=== PATIENT | female | born 1945 | race Caucasian/White ===

== ENCOUNTER 2021-04-15 11:03 | Inpatient (IN) | payer MEDICARE ==
[~2021-04-15] VITALS: Ht 152.4 cm; Wt 87.5 kg
--- NOTE | 2021-04-15 12:19 | ED.ADGEN ---
Past Medical History Past Surgical History: Cholecystectomy Additional Past Surgical Histo: L hip surgery, carpal tunnel, lumbar back, Smoking Status: Never Smoker Alcohol Use: None General Adult EDM: Chief Complaint: ABDOMINAL PAIN HPI: HPI: Patient is a 75-year-old female who arrives via EMS complaining of a 2-week h istory of intermittent abdominal pain. Patient reports she saw her primary care physician 2 weeks ago and had this pain at that time. Patient states despite that, the pain subsided without intervention. Patient states the pain has however returned and she now has pain in her lower abdomen. Patient further states that it is exquisitely painful whenever she moves. Patient points to her right lower quadrant as well as left lower quadrant. Despite her pain, the patient denies any history of fever, nausea or vomiting. She further denies diarrhea or dysuria. Additionally she denies any development of any masses. She is awake, alert and nontoxic-appearing Review of Systems: Review of Systems: Constitutional: Denies fever or chills. [] Eyes: Denies change in visual acuity. [] HENT: Denies nasal congestion or sore throat. [] Respiratory: Denies cough or shortness of breath. [] Cardiovascular: Denies chest pain or edema. [] GI: Reports abdominal pain. denies nausea, vomiting, bloody stools or diarrhea. [] : Denies dysuria. [] Musculoskeletal: Denies back pain or joint pain. [] Integument: Denies rash. [] Neurologic: Denies headache, focal weakness or sensory changes. [] Endocrine: Denies polyuria or polydipsia. [] Lymphatic: Denies swollen glands. [] Psychiatric: Denies depression or anxiety. [] Current Medications: Current Medications Medications (Trade) Dose Ordered Sig/[place] Start Time Stop Time Status Last Admin Dose Admin Ceftriaxone Sodium (Rocephin) 1 gm 1X ONCE 04/15/21 15:30 04/15/21 15:31 DC Morphine Sulfate (Morphine Sulfate) 4 mg PRN Q2HR PRN 04/15/21 16:00 04/16/21 15:59 Ondansetron HCl (Zofran) 4 mg PRN Q8HRS PRN 04/15/21 16:00 04/16/21 15:59 Allergies: Allergies: Allergies Coded Allergies Type Severity Reaction Last Updated Verified Sulfa (Sulfonamide Antibiotics) Allergy Unknown 04/15/21 Yes ibuprofen Allergy Unknown 04/15/21 Yes Physical Exam: PE: Constitutional: Well developed, well nourished, no acute distress, non-toxic appearance. [] HENT: Normocephalic, atraumatic, bilateral external ears normal, oropharynx moist, no oral exudates, nose normal. [] Eyes: PERRLA, EOMI, conjunctiva normal, no discharge. [] Neck: Normal range of motion, no tenderness, supple, no stridor. [] Cardiovascular:Heart rate regular rhythm, no murmur [] Lungs & Thorax: Bilateral breath sounds clear to auscultation [] Abdomen: Tenderness to palpation of the right and left lower quadrant of the abdomen. Bowel sounds normal, soft, no masses, no pulsatile masses. [] Skin: Warm, dry, no erythema, no rash. [] Back: No tenderness, no CVA tenderness. [] Extremities: No tenderness, no cyanosis, no clubbing, ROM intact, no edema. [] Neurologic: Alert and oriented X 3, normal motor function, normal sensory f unction, no focal deficits noted. [] Psychologic: Affect normal, judgement normal, mood normal. [] Current Patient Data: Labs: Laboratory Tests Test 04/15/21 12:14 04/15/21 13:09 04/15/21 13:10 Urine Collection Type Unknown Urine Color Yellow Urine Clarity Clear Urine pH 7.0 (<5.0-8.0) Urine Specific [place] 1.015 (1.000-1.030) Urine Protein 30 mg/dL (NEG-TRACE) Urine Glucose (UA) Negative mg/dL (NEG) Urine Ketones (Stick) Negative mg/dL (NEG) Urine Blood Trace (NEG) Urine Nitrite Negative (NEG) Urine Bilirubin Negative (NEG) Urine Urobilinogen Dipstick 0.2 mg/dL (0.2 mg/dL) Urine Leukocyte Esterase Moderate (NEG) Urine RBC 3-5 /HPF (0-2) Urine WBC 11-20 /HPF (0-4) Urine Squamous Epithelial Cells Few /LPF Urine Bacteria Moderate /HPF (0-FEW) White Blood Count 8.5 x10^3/uL (4.0-11.0) Red Blood Count 2.45 x10^6/uL (3.50-5.40) L Hemoglobin 7.9 g/dL (12.0-15.5) L Hematocrit 23.3 % (36.0-47.0) L Mean Corpuscular Volume 95 fL (79-100) Mean Corpuscular Hemoglobin 32 pg (25-35) Mean Corpuscular Hemoglobin Concent 34 g/dL (31-37) Red Cell Distribution Width 18.5 % (11.5-14.5) H Platelet Count 394 x10^3/uL (140-400) Neutrophils (%) (Auto) 92 % (31-73) H Lymphocytes (%) (Auto) 5 % (24-48) L Monocytes (%) (Auto) 1 % (0-9) Eosinophils (%) (Auto) 1 % (0-3) Basophils (%) (Auto) 1 % (0-3) Neutrophils # (Auto) 7.9 x10^3/uL (1.8-7.7) H Lymphocytes # (Auto) 0.5 x10^3/uL (1.0-4.8) L Monocytes # (Auto) 0.1 x10^3/uL (0.0-1.1) Eosinophils # (Auto) 0.1 x10^3/uL (0.0-0.7) Basophils # (Auto) 0.0 x10^3/uL (0.0-0.2) Sodium Level 137 mmol/L (136-145) Potassium Level 4.4 mmol/L (3.5-5.1) Chloride Level 100 mmol/L (98-107) Carbon Dioxide Level 26 mmol/L (21-32) Anion Gap 11 (6-14) Blood Urea Nitrogen 41 mg/dL (7-20) H Creatinine 1.6 mg/dL (0.6-1.0) H Estimated GFR (Cockcroft-Gault) 31.6 BUN/Creatinine Ratio 26 (6-20) H Glucose Level 114 mg/dL (70-99) H Calcium Level 9.6 mg/dL (8.5-10.1) Total Bilirubin 0.4 mg/dL (0.2-1.0) Aspartate Amino Transferase (AST) 25 U/L (15-37) Alanine Aminotransferase (ALT) 21 U/L (14-59) Alkaline Phosphatase 93 U/L (46-116) Total Protein 7.4 g/dL (6.4-8.2) Albumin 2.5 g/dL (3.4-5.0) L Albumin/Globulin Ratio 0.5 (1.0-1.7) L SARS-CoV-2 Antigen (Rapid) Negative (NEGATIVE) Laboratory Tests 04/15/21 13:09 Laboratory Tests 04/15/21 13:09 Vital Signs: Vital Signs Date Time Temp Pulse Resp B/P (MAP) Pulse Ox O2 Delivery O2 Flow Rate FiO2 04/15/21 11:10 98.3 72 18 122/53 (76) 98 Room Air 98.3 EKG: EKG: [] Heart Score: C/O Chest Pain: No Risk Factors: Risk Factors: DM, Current or recent (<one month) smoker, HTN, HLP, family history of CAD, obesity. Risk Scores: Score 0 - 3: 2.5% MACE over next 6 weeks - Discharge Home Score 4 - 6: 20.3% MACE over next 6 weeks - Admit for Clinical Observation Score 7 - 10: 72.7% MACE over next 6 weeks - Early Invasive Strategies Radiology/Procedures: Radiology/Procedures: [][facility] [address] [place] [address] IMAGING REPORT Signed PATIENT: PATRICA FELICIANO ACCOUNT: [id number] : 1945 LOCATION: ER AGE: 75 SEX: F EXAM STATUS: REG ER ORD. PHYSICIAN: LORNA FARRELL DO REASON: Lower abdominal pain PROCEDURE: CT ABDOMEN PELVIS WO CONTRAST Exam: CT abdomen/pelvis without intravenous contrast Indication: Lower abdominal pain Comparison: None Technique: Helical CT imaging performed of the abdomen and pelvis without the use of intravenous contrast. Sagittal and coronal reformats were obtained. One or more of the following individualized dose reduction techniques were utilized for this examination: 1. Automated exposure control 2. Adjustment of the mA and/or kV according to patient size 3. Use of iterative reconstruction technique. Findings: Inherently limited evaluation without intravenous contrast. Lower chest: Heart size is normal. There are mitral and aortic annulus calcifications. There is a 5 mm nodule in the right middle lobe. Mild atelectasis in the left lung base. Liver: Normal noncontrast appearance the liver. Gallbladder/Biliary Tree: The gallbladder is surgically absent. Pancreas: Normal. Spleen: Normal. Adrenal Glands: Normal. Kidneys/Ureters/Bladder: Normal. No nephrolithiasis or hydronephrosis. Reproductive Organs: Uterus is anteverted. No adnexal mass. Stomach, small bowel, and colon: Limited evaluation of the bowel due to lack of IV or po contrast. The stomach is decompressed limiting evaluation. There are borderline dilated loops of small bowel in the left lower quadrant without definite transition point. There is some wall thickening of the left lower quadrant. Vasculature: Abdominal aorta is normal in caliber. There is mild to moderate moderate calcified aortoiliac atherosclerosis. Lymph Nodes: No lymphadenopathy. Peritoneum and retroperitoneum: There is omental fat stranding, greatest in the right upper quadrant and left hemiabdomen, nonspecific. No free fluid or free air. Bones: There are surgical changes of posterior decompression and posterior fusion at L2 through the iliac bones. 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 Lumbar scoliosis. Miscellaneous: Small fat-containing umbilical hernia. IMPRESSION: 1. Borderline dilated loops of small bowel in the left hemiabdomen without discrete transition point. Suspect wall thickening in some of the mid small bowel. Findings may reflect enteritis, which could be infectious, inflammatory or ischemic in etiology. Low-grade partial small bowel obstruction is a differential consideration. 2. Omental fat stranding, greatest in the right upper quadrant and also along the left paracolic gutter, nonspecific. In the right upper quadrant there is questionable focal wall thickening in the adjacent transverse colon, which could be due to incomplete distention, colitis, or underlying colonic lesion. 3. Small fat-containing umbilical hernia. 5 mm nodule in the right middle lobe. If the patient is at high risk for lung cancer, and optional twelve-month follow-up CT of the chest could be obtained per Fleischner Society guidelines. Electronically signed by: Cheryl Jones MD (04/15/2021 3:39 PM) [id number] DICTATED and SIGNED BY: CHERYL JONES MD DATE: 04/15/21 [id number] Course & Med Decision Making: Course & Med Decision Making Pertinent Labs and Imaging studies reviewed. (See chart for details) [] Dragon Disclaimer: Dragon Disclaimer: This electronic medical record was generated, in whole or in part, using a voice recognition dictation system. Departure Departure Impression: Primary Impression: Partial small bowel obstruction Additional Impression: UTI (urinary tract infection) Disposition: ADMITTED INPATIENT Admitting Physician: ADRIEN Condition: STABLE Problem Qualifiers LORNA FARRELL DO Apr 15, 2021 12:19
[2021-04-15 13:20] LABS: BASO % 1 % (0-3); EOS # 0.1 x10^3/uL (0.0-0.7); EOS % 1 % (0-3); HEMATOCRIT 23.3 % (36.0-47.0); HEMOGLOBIN 7.9 g/dL (12.0-15.5); LYMPH # 0.5 x10^3/uL (1.0-4.8); LYMPH % 5 % (24-48); MEAN CORPUSCULAR HEMOGLOBIN 32 pg (25-35); MEAN CORPUSCULAR HGB CONC 34 g/dL (31-37); MEAN CORPUSCULAR VOLUME 95 fL (79-100); MONO # 0.1 x10^3/uL (0.0-1.1); MONO % 1 % (0-9); NEUT # 7.9 x10^3/uL (1.8-7.7); NEUT % 92 % (31-73); PLATELET COUNT 394 x10^3/uL (140-400); RED BLOOD COUNT 2.45 x10^6/uL (3.50-5.40); RED CELL DISTRIBUTION WIDTH 18.5 % (11.5-14.5); WHITE BLOOD COUNT 8.5 x10^3/uL (4.0-11.0)
[2021-04-15 13:29] LABS: CALCIUM 9.6 mg/dL (8.5-10.1); CREATININE 1.6 mg/dL (0.6-1.0); GFR 31.6; POTASSIUM 4.4 mmol/L (3.5-5.1)
[2021-04-15 13:35] LABS: ALBUMIN 2.5 g/dL (3.4-5.0); ALBUMIN/GLOBULIN RATIO 0.5 (1.0-1.7); TOTAL BILIRUBIN 0.4 mg/dL (0.2-1.0); TOTAL PROTEIN 7.4 g/dL (6.4-8.2)
[2021-04-15 13:41] LABS: BILIRUBIN,URINE NEGATIVE (NEG); CLARITY,URINE CLEAR; COLOR,URINE YELLOW; NITRITE,URINE NEGATIVE (NEG); PROTEIN,URINE 30 mg/dL (NEG-TRACE); UROBILINOGEN,URINE 0.2 mg/dL (0.2 mg/dL)
[2021-04-15] MEDS ORDERED: cefTRIAXone IV Push 1 GM VIAL. IVP ONE (15:30)
[2021-04-15 15:31] LABS: BACTERIA,URINE MODERATE /HPF (0-FEW)
--- NOTE | 2021-04-15 15:41 | RAD ---
Exam: CT abdomen/pelvis without intravenous contrast Indication: Lower abdominal pain Comparison: None Technique: Helical CT imaging performed of the abdomen and pelvis without the use of intravenous cont rast. Sagittal and coronal reformats were obtained. One or more of the following individualized dose reduction techniques were utilized for this examinat ion: 1. Automated exposure control 2. Adjustment of the mA and/or kV according to patient size 3. Use of iterative reconstruction technique. Findings: Inherently limited evaluation without intravenous contrast. Lower chest: Heart size is normal. There are mitral and aortic annulus calcifications. There is a 5 m m nodule in the right middle lobe. Mild atelectasis in the left lung base. Liver: Normal noncontrast appearance the liver. Gallbladder/Biliary Tree: The gallbladder is surgically absent. Pancreas: Normal. Spleen: Normal. Adrenal Glands: Normal. Kidneys/Ureters/Bladder: Normal. No nephrolithiasis or hydronephrosis. Reproductive Organs: Uterus is anteverted. No adnexal mass. Stomach, small bowel, and colon: Limited evaluation of the bowel due to lack of IV or po contrast. Th e stomach is decompressed limiting evaluation. There are borderline dilated loops of small bowel in t he left lower quadrant without definite transition point. There is some wall thickening of the left l ower quadrant. Vasculature: Abdominal aorta is normal in caliber. There is mild to moderate moderate calcified aorto iliac atherosclerosis. Lymph Nodes: No lymphadenopathy. Peritoneum and retroperitoneum: There is omental fat stranding, greatest in the right upper quadrant and left hemiabdomen, nonspecific. No free fluid or free air. Bones: There are surgical changes of posterior decompression and posterior fusion at L2 through the i liac bones. 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 Lumbar scoliosis. Miscellaneous: Small fat-containing umbilical hernia. IMPRESSION: 1. Borderline dilated loops of small bowel in the left hemiabdomen without discrete transition point . Suspect wall thickening in some of the mid small bowel. Findings may reflect enteritis, which could be infectious, inflammatory or ischemic in etiology. Low-grade partial small bowel obstruction is a differential consideration. 2. Omental fat stranding, greatest in the right upper quadrant and also along the left paracolic gutt er, nonspecific. In the right upper quadrant there is questionable focal wall thickening in the adjac ent transverse colon, which could be due to incomplete distention, colitis, or underlying colonic les ion. 3. Small fat-containing umbilical hernia. 5 mm nodule in the right middle lobe. If the patient is at high risk for lung cancer, and optional tw elve-month follow-up CT of the chest could be obtained per Fleischner Society guidelines. Electronically signed by: Cheryl Jones MD (04/15/2021 3:39 PM) [id number]
[2021-04-15] MEDS ORDERED: ONDANSETRON PF 4 MG/2 ML VIAL. IVP PRN (16:00)
[2021-04-15] MEDS ORDERED: MORPHINE SULFATE 4 MG/ML INJ. IVP PRN (16:00)
[2021-04-15 20:14] VITALS: BP 107/72
[2021-04-15] MEDS ORDERED: ACETAMINOPHEN 325 MG TABLET. PO PRN (21:00)
[2021-04-15] MEDS ORDERED: GEMF600T20 PO (22:22)
[2021-04-15] MEDS ORDERED: ALLO100T PO (22:22)
[2021-04-15] MEDS ORDERED: FERR240T2 PO (22:22)
[2021-04-15] MEDS ORDERED: CYAN500T17 PO (22:22)
[2021-04-15] MEDS ORDERED: LISI20TA18 PO (22:22)
[2021-04-15] MEDS ORDERED: HYDR50TA9 PO (22:22)
[2021-04-15] MEDS ORDERED: CALC-157 PO (22:22)
[2021-04-15] MEDS ORDERED: FOLI0.8C PO (22:22)
[2021-04-15] MEDS ORDERED: MELA1TAB44 PO (22:22)
[2021-04-15] MEDS ORDERED: CHOL5000 PO (22:22)
[2021-04-15] MEDS ORDERED: METH2.5T PO (22:22)
[2021-04-15] MEDS ORDERED: GABA600T7 PO (22:22)
[2021-04-15] MEDS ORDERED: OXYC5CAP PO (22:22)
[2021-04-15] MEDS ORDERED: ATOR10TA60 PO (22:22)
[2021-04-15] MEDS ORDERED: POLY119P4 PO (22:23)
--- NOTE | 2021-04-16 01:22 | PDOC1 ---
History and Physical Date of Service: DOS: DATE: 04/16/21 TIME: 01:21 Chief Complaint: Chief Complain: abd pain History of Present Illness: HPI: Patient is a 75-year-old female who arrives via EMS complaining of a 2-week history of intermittent abdominal pain. Patient reports she saw her primary care physician 2 weeks ago and had this pain at that time. Patient states despite that, the pain subsided without intervention. Patient states the pain has however returned and she now has pain in her lower abdomen. Patient further states that it is exquisitely painful whenever she moves. Patient points to her right lower quadrant as well as left lower quadrant. Despite her pain, the patient denies any history of fever, nausea or vomiting. She further denies diarrhea or dysuria. Additionally she denies any development of any masses. She is awake, alert and nontoxic-appearing Past Medical/Surgical History: PMH/PSH: previous lap libby Allergies: Allergies: Coded Allergies: Sulfa (Sulfonamide Antibiotics) (Verified Allergy, Intermediate, 04/15/21) ibuprofen (Verified Allergy, Intermediate, 04/15/21) Family History: Family History: htn Social History: Social History: denies alcohol tobacco drug use Current Medications: Current Medications Current Medications Ceftriaxone Sodium (Rocephin) 1 gm 1X ONCE IVP Last administered on 04/15/21at 16:22; Start 04/15/21 at 15:30; Stop 04/15/21 at 15:31; Status DC Ondansetron HCl (Zofran) 4 mg PRN Q8HRS PRN IVP NAUSEA/VOMITING; Start 04/15/21 at 16:00; Stop 04/16/21 at 15:59 Morphine Sulfate (Morphine Sulfate) 4 mg PRN Q2HR PRN IVP PAIN; Start 04/15/21 at 16:00; Stop 04/16/21 at 15:59 Acetaminophen (Tylenol) 650 mg PRN Q6HRS PRN PO MILD PAIN / TEMP > 100.3'F Last administered on 04/15/21at 21:07; Start 04/15/21 at 21:00 Active Scripts Active Reported Miralax (Polyethylene Glycol 3350) 119 Gm Powder 17 Gm PO DAILY PRN dissolve in water Melatonin 1 Mg Tablet 3 Mg PO QHS Oxycodone Hcl 5 Mg Capsule 5 Mg PO TID PRN Ferrous Gluconate 240 Mg Tablet 324 Mg PO BID B-12 (Cyanocobalamin (Vitamin B-12)) 500 Mcg Tablet 500 Mcg PO DAILY Calcium 500 + Vit D 200 Tablet (Calcium Carbonate/Vitamin D3) 1 Each Tablet 1 Each PO DAILY Methotrexate (Methotrexate Sodium) 2.5 Mg Tablet 2.5 Mg PO BID PRN Lisinopril 20 Mg Tablet 20 Mg PO DAILY Hydrochlorothiazide Tablet (Hydrochlorothiazide) 50 Mg Tablet 25 Mg PO DAILY Gemfibrozil 600 Mg Tablet 600 Mg PO BID Gabapentin 600 Mg Tablet 300 Mg PO BID Folic Acid 0.8 Mg Capsule 1 Mg PO DAILY Vitamin D3 (Vitamin D) 125 Mcg Capsule 1,000 Mcg PO DAILY 5,000 UNITS = 125 MCG Atorvastatin Calcium 10 Mg Tablet 10 Mg PO HS Allopurinol 100 Mg Tablet 100 Mg PO DAILY ROS: Review of Systems Review of System Unless ntoed in HPI 14 point ROS was negative Physical Exam: Vital Signs: Vital Signs Date Time Temp Pulse Resp B/P (MAP) Pulse Ox O2 Delivery O2 Flow Rate FiO2 04/15/21 20:14 99.8 74 20 107/72 (84) 94 Room Air 99.8 Physcial Exam: GEN: No apparent distress. Alert and oriented HEENT: Normal cephalic, atraumatic, external auditory canals are patent EYES: Extraocular muscles are intact, pupil are equally round and reactive to light and accommodation MUSCULOSKELETAL: Well developed , well nourished, good range of motion ENDOCRINE: No thyromegaly was palpated LYMPHATICS: No cervical chain or axillary nodes were noted HEMATOPOIETIC: No bruising NECK: Supple, no JVD, no thyromegaly was noted LUNGS: Clear to auscultation in all lung torres without rhonchi or wheezing HEART: RRR, S!, S2 present. Peripheral pulses intact, no obvious murmurs noted ABDOMEN: Soft, nontender. Positive bowel sounds, no organomegaly, normal bowel sounds EXTREMITIES: Without clubbing, cyanosis, or edema. Pedal pulses intact. Negative Homans sign NEUROLOGIC: Normal speech and tone. A&O x 3, moves all extremities, no obvious focal deficits PSYCHIATRIC: Normal affect, normal mood. Stable SKIN: No ulcerations or rashes, good skin turgor, no jaundice VASCULAR: Good capillary refill, neurovascular bundle appears to be intact Labs: Labs: Laboratory Tests Test 1/17/22 12:14 04/15/21 13:09 04/15/21 13:10 Urine Collection Type Unknown Urine Color Yellow Urine Clarity Clear Urine pH 7.0 (<5.0-8.0) Urine Specific [place] 1.015 (1.000-1.030) Urine Protein 30 mg/dL (NEG-TRACE) Urine Glucose (UA) Negative mg/dL (NEG) Urine Ketones (Stick) Negative mg/dL (NEG) Urine Blood Trace (NEG) Urine Nitrite Negative (NEG) Urine Bilirubin Negative (NEG) Urine Urobilinogen Dipstick 0.2 mg/dL (0.2 mg/dL) Urine Leukocyte Esterase Moderate (NEG) Urine RBC 3-5 /HPF (0-2) Urine WBC 11-20 /HPF (0-4) Urine Squamous Epithelial Cells Few /LPF Urine Bacteria Moderate /HPF (0-FEW) White Blood Count 8.5 x10^3/uL (4.0-11.0) Red Blood Count 2.45 x10^6/uL (3.50-5.40) Hemoglobin 7.9 g/dL (12.0-15.5) Hematocrit 23.3 % (36.0-47.0) Mean Corpuscular Volume 95 fL (79-100) Mean Corpuscular Hemoglobin 32 pg (25-35) Mean Corpuscular Hemoglobin Concent 34 g/dL (31-37) Red Cell Distribution Width 18.5 % (11.5-14.5) Platelet Count 394 x10^3/uL (140-400) Neutrophils (%) (Auto) 92 % (31-73) Lymphocytes (%) (Auto) 5 % (24-48) Monocytes (%) (Auto) 1 % (0-9) Eosinophils (%) (Auto) 1 % (0-3) Basophils (%) (Auto) 1 % (0-3) Neutrophils # (Auto) 7.9 x10^3/uL (1.8-7.7) Lymphocytes # (Auto) 0.5 x10^3/uL (1.0-4.8) Monocytes # (Auto) 0.1 x10^3/uL (0.0-1.1) Eosinophils # (Auto) 0.1 x10^3/uL (0.0-0.7) Basophils # (Auto) 0.0 x10^3/uL (0.0-0.2) Sodium Level 137 mmol/L (136-145) Potassium Level 4.4 mmol/L (3.5-5.1) Chloride Level 100 mmol/L (98-107) Carbon Dioxide Level 26 mmol/L (21-32) Anion Gap 11 (6-14) Blood Urea Nitrogen 41 mg/dL (7-20) Creatinine 1.6 mg/dL (0.6-1.0) Estimated GFR (Cockcroft-Gault) 31.6 BUN/Creatinine Ratio 26 (6-20) Glucose Level 114 mg/dL (70-99) Calcium Level 9.6 mg/dL (8.5-10.1) Total Bilirubin 0.4 mg/dL (0.2-1.0) Aspartate Amino Transf (AST/SGOT) 25 U/L (15-37) Alanine Aminotransferase (ALT/SGPT) 21 U/L (14-59) Alkaline Phosphatase 93 U/L (46-116) Total Protein 7.4 g/dL (6.4-8.2) Albumin 2.5 g/dL (3.4-5.0) Albumin/Globulin Ratio 0.5 (1.0-1.7) SARS-CoV-2 Antigen (Rapid) Negative (NEGATIVE) Laboratory Tests Test 04/15/21 12:14 04/15/21 13:09 04/15/21 13:10 Urine Collection Type Unknown Urine Color Yellow Urine Clarity Clear Urine pH 7.0 (<5.0-8.0) Urine Specific [place] 1.015 (1.000-1.030) Urine Protein 30 mg/dL (NEG-TRACE) Urine Glucose (UA) Negative mg/dL (NEG) Urine Ketones (Stick) Negative mg/dL (NEG) Urine Blood Trace (NEG) Urine Nitrite Negative (NEG) Urine Bilirubin Negative (NEG) Urine Urobilinogen Dipstick 0.2 mg/dL (0.2 mg/dL) Urine Leukocyte Esterase Moderate (NEG) Urine RBC 3-5 /HPF (0-2) Urine WBC 11-20 /HPF (0-4) Urine Squamous Epithelial Cells Few /LPF Urine Bacteria Moderate /HPF (0-FEW) White Blood Count 8.5 x10^3/uL (4.0-11.0) Red Blood Count 2.45 x10^6/uL (3.50-5.40) Hemoglobin 7.9 g/dL (12.0-15.5) Hematocrit 23.3 % (36.0-47.0) Mean Corpuscular Volume 95 fL (79-100) Mean Corpuscular Hemoglobin 32 pg (25-35) Mean Corpuscular Hemoglobin Concent 34 g/dL (31-37) Red Cell Distribution Width 18.5 % (11.5-14.5) Platelet Count 394 x10^3/uL (140-400) Neutrophils (%) (Auto) 92 % (31-73) Lymphocytes (%) (Auto) 5 % (24-48) Monocytes (%) (Auto) 1 % (0-9) Eosinophils (%) (Auto) 1 % (0-3) Basophils (%) (Auto) 1 % (0-3) Neutrophils # (Auto) 7.9 x10^3/uL (1.8-7.7) Lymphocytes # (Auto) 0.5 x10^3/uL (1.0-4.8) Monocytes # (Auto) 0.1 x10^3/uL (0.0-1.1) Eosinophils # (Auto) 0.1 x10^3/uL (0.0-0.7) Basophils # (Auto) 0.0 x10^3/uL (0.0-0.2) Sodium Level 137 mmol/L (136-145) Potassium Level 4.4 mmol/L (3.5-5.1) Chloride Level 100 mmol/L (98-107) Carbon Dioxide Level 26 mmol/L (21-32) Anion Gap 11 (6-14) Blood Urea Nitrogen 41 mg/dL (7-20) Creatinine 1.6 mg/dL (0.6-1.0) Estimated GFR (Cockcroft-Gault) 31.6 BUN/Creatinine Ratio 26 (6-20) Glucose Level 114 mg/dL (70-99) Calcium Level 9.6 mg/dL (8.5-10.1) Total Bilirubin 0.4 mg/dL (0.2-1.0) Aspartate Amino Transf (AST/SGOT) 25 U/L (15-37) Alanine Aminotransferase (ALT/SGPT) 21 U/L (14-59) Alkaline Phosphatase 93 U/L (46-116) Total Protein 7.4 g/dL (6.4-8.2) Albumin 2.5 g/dL (3.4-5.0) Albumin/Globulin Ratio 0.5 (1.0-1.7) SARS-CoV-2 Antigen (Rapid) Negative (NEGATIVE) Assessment/Plan Assessment/Plan Abd pain, partial sbo, possible enteritis -no bm for several days =ct showing partial sbo -surgery gi consults -npo, ADAT -no need for [facility] resumed as indiated Justifications for Admission Other Justification CELSO ZHANG MD Apr 16, 2021 01:22
[2021-04-16] MEDS ORDERED: MAG HYDROX/ALUMINUM HYD/SIMETH 30 ML ORAL.SUSP PO PRN (01:30)
[2021-04-16] MEDS ORDERED: ACETAMINOPHEN 325 MG TABLET. PO PRN (01:30)
[2021-04-16] MEDS ORDERED: CALCIUM CARBONATE 500 MG TAB.CHEW PO PRN (01:30)
[2021-04-16] MEDS ORDERED: POLYETHYLENE GLYCOL 3350 17 GM PACKET. PO PRN (01:30)
[2021-04-16] MEDS ORDERED: ZOLPIDEM 5 MG TABLET. PO PRN (01:30)
[2021-04-16] MEDS ORDERED: ELECTROLYTE (NON-ICU) PROTOCOL. MC PRN (01:30)
[2021-04-16] MEDS ORDERED: ONDANSETRON PF 4 MG/2 ML VIAL. IVP PRN (01:30)
[2021-04-16 03:32] VITALS: BP 109/45
[2021-04-16 07:00] VITALS: BP 116/46
[2021-04-16] MEDS ORDERED: IV RINGERS,LACTATED 1000ML 1,000 ML IV ONE (08:30)
[2021-04-16] MEDS: ALLOPURINOL 100 MG TABLET. PO SCH (09:00)
[2021-04-16] MEDS: FOLIC ACID 1 MG TABLET. PO SCH (09:00)
[2021-04-16] MEDS: GEMFIBROZIL 600 MG TABLET. PO SCH ×2 (09:00→20:40)
[2021-04-16] MEDS: SENNOSIDES/DOCUSATE 8.6/50MG TABLET. PO SCH ×2 (09:00→21:00)
[2021-04-16] MEDS: CYANOCOBALAMIN (VITAMIN B-12) 1,000 MCG TABLET. PO SCH (09:00)
[2021-04-16] MEDS: CHOLECALCIFEROL (VITAMIN D3) 5,000 UNIT CAPSULE PO SCH (09:00)
[2021-04-16] MEDS: CALCIUM CARB/VIT D3 500/200 TABLET. PO SCH (09:00)
[2021-04-16] MEDS: GABAPENTIN 300 MG CAPSULE. PO SCH ×2 (09:00→20:40)
--- NOTE | 2021-04-16 09:19 | PDOC2 ---
JAYSON JUAN ASSISTANT SHIFT SUPERVISOR 04/16/21 0919: CONSULT Date of Consult Date of Consult DATE: 04/16/21 TIME: 09:14 Reason for Consult Reason for Consult: PSBO Referring Physician Referring Physician: ER Identification/Chief Complaint Chief Complaint abdominal pain Source Source: Chart review, Patient History of Present Illness Reason for Visit: 2 weeks of lower abdominal pain, denies n/v, had stool 2 days ago, + flatus ( minimal). Denies diarrhea. Recovering from hip surgery in Jan, lack of appetite since then. Reports a normal colonoscopy in Feb 2021. Pain is across lower abdomen, up right side, flank. Eating does not seem to aggravate Hx of erythema nodosum, on methotrexate only abdominal surgery lap libby Past Medical History Past Medical History erythema nodosum Past Surgical History Past Surgical History: Cholecystectomy Family History Family History: Other (noncontributory to current illness ) Social History No ALCOHOL: none Drugs: None Lives: with Family Current Problem List Problem List Problems Medical Problems: (1) Partial small bowel obstruction Status: Acute (2) UTI (urinary tract infection) Status: Acute Current Medications Current Medications Current Medications Ceftriaxone Sodium (Rocephin) 1 gm 1X ONCE IVP Last administered on 04/15/21at 16:22; Start 04/15/21 at 15:30; Stop 04/15/21 at 15:31; Status DC Ondansetron HCl (Zofran) 4 mg PRN Q8HRS PRN IVP NAUSEA/VOMITING; Start 04/15/21 at 16:00; Stop 04/16/21 at 15:59 Morphine Sulfate (Morphine Sulfate) 4 mg PRN Q2HR PRN IVP PAIN; Start 04/15/21 at 16:00; Stop 04/16/21 at 15:59 Acetaminophen (Tylenol) 650 mg PRN Q6HRS PRN PO MILD PAIN / TEMP > 100.3'F Last administered on 04/15/21at 21:07; Start 04/15/21 at 21:00; Stop 04/16/21 at 01:28; Status DC Allopurinol (Zyloprim) 100 mg DAILY PO ; Start 04/16/21 at 09:00 Atorvastatin Calcium (Lipitor) 10 mg HS PO ; Start 04/16/21 at 21:00 Calcium/Vitamin D (Oscal D 500mg/ 200uts) 1 tab DAILY PO ; Start 04/16/21 at 09:00 Vitamin D (Vitamin D3) 5,000 unit DAILY PO ; Start 04/16/21 at 09:00 Gemfibrozil (Lopid) 600 mg BID PO ; Start 04/16/21 at 09:00 Polyethylene Glycol (miraLAX PACKET) 17 gm PRN DAILY PRN PO CONSTIPATION; Start 04/16/21 at 01:30 Cyanocobalamin (Vitamin B-12) 500 mcg DAILY PO ; Start 04/16/21 at 09:00 Folic Acid (Folic Acid) 1 mg DAILY PO ; Start 04/16/21 at 09:00 Gabapentin (Neurontin) 300 mg BID PO ; Start 04/16/21 at 09:00 Ondansetron HCl (Zofran) 4 mg PRN Q6HRS PRN IVP NAUSEA/VOMITING 1ST CHOICE; Start 04/16/21 at 01:30 Al Hydroxide/Mg Hydroxide (Mylanta Plus Xs) 30 ml PRN Q3HRS PRN PO HEARTBURN / GAS; Start 04/16/21 at 01:30 Calcium Carbonate/ Glycine (Tums) 500 mg PRN Q3HRS PRN PO UPSET STOMACH; Start 04/16/21 at 01:30 Zolpidem Tartrate (Ambien) 5 mg PRN QHS PRN PO INSOMNIA, MAY REPEAT IN 1HR; Start 04/16/21 at 01:30 Info (Non-Icu Electrolyte Protocol) 1 ea PRN DAILY PRN MC SEE COMMENTS; Start 04/16/21 at 01:30 Acetaminophen (Tylenol) 650 mg PRN Q6HRS PRN PO Headaches, Temp > 101.5F; Start 04/16/21 at 01:30 Senna/Docusate Sodium (Senna Plus) 1 tab BID PO ; Start 04/16/21 at 09:00 Ringer's Solution 1,000 ml @ 75 mls/hr 1X ONCE IV Last administered on 04/16/21at 08:40; Start 04/16/21 at 08:30; Stop 04/16/21 at 21:49 Active Scripts Active Reported Miralax (Polyethylene Glycol 3350) 119 Gm Powder 17 Gm PO DAILY PRN dissolve in water Melatonin 1 Mg Tablet 3 Mg PO QHS Oxycodone Hcl 5 Mg Capsule 5 Mg PO TID PRN Ferrous Gluconate 240 Mg Tablet 324 Mg PO BID B-12 (Cyanocobalamin (Vitamin B-12)) 500 Mcg Tablet 500 Mcg PO DAILY Calcium 500 + Vit D 200 Tablet (Calcium Carbonate/Vitamin D3) 1 Each Tablet 1 Each PO DAILY Methotrexate (Methotrexate Sodium) 2.5 Mg Tablet 2.5 Mg PO BID PRN Lisinopril 20 Mg Tablet 20 Mg PO DAILY Hydrochlorothiazide Tablet (Hydrochlorothiazide) 50 Mg Tablet 25 Mg PO DAILY Gemfibrozil 600 Mg Tablet 600 Mg PO BID Gabapentin 600 Mg Tablet 300 Mg PO BID Folic Acid 0.8 Mg Capsule 1 Mg PO DAILY Vitamin D3 (Vitamin D) 125 Mcg Capsule 1,000 Mcg PO DAILY 5,000 UNITS = 125 MCG Atorvastatin Calcium 10 Mg Tablet 10 Mg PO HS Allopurinol 100 Mg Tablet 100 Mg PO DAILY Allergies Allergies: Coded Allergies: Sulfa (Sulfonamide Antibiotics) (Verified Allergy, Intermediate, 04/15/21) ibuprofen (Verified Allergy, Intermediate, 04/15/21) ROS General: YES: Other (subjective fevers ); No: Chills PSYCHOLOGICAL ROS: No: Anxiety, Depression Eyes: No Blurry vision, No Double vision HEENT: No: Heacaches, Sore Throat Hematological and Lymphatic: No: Bleeding Problems, Blood Clots Respiratory: No: Cough, Shortness of breath Cardiovascular: No Chest Pain, No Palpitations Gastrointestinal: Yes Other (see hpi) Genitourinary: No Dysuria, No Retention Musculoskeletal: Yes Muscular Weakness Neurological: No Confusion, No Numbness/Tingling Skin: No Pruritus, No Rash Physical Exam General: Alert, Oriented X3, Cooperative HEENT: Atraumatic, PERRLA Lungs: Clear to auscultation, Normal air movement Heart: Regular rate, Normal S1, Normal S2 Abdomen: Soft, Other (ND, mild ttp lower abdomen ) Extremities: No clubbing, No cyanosis Skin: No rashes, No breakdown Neuro: Normal gait, Normal speech Psych/Mental Status: Mental status NL, Mood NL MUSCULOSKELETAL: No joint tenderness, No deformity Vitals VITALS Vital Signs Date Time Temp Pulse Resp B/P (MAP) Pulse Ox O2 Delivery O2 Flow Rate FiO2 04/16/21 08:00 Room Air 04/16/21 07:00 99.2 72 18 116/46 (69 92 99.2 Labs Labs Laboratory Tests Test 04/15/21 12:14 04/15/21 13:04/15/21 13:10 Urine Collection Type Unknown Urine Color Yellow Urine Clarity Clear Urine pH 7.0 (<5.0-8.0) Urine Specific [place] 1.015 (1.000-1.030) Urine Protein 30 mg/dL (NEG-TRACE) Urine Glucose (UA) Negative mg/dL (NEG) Urine Ketones (Stick) Negative mg/dL (NEG) Urine Blood Trace (NEG) Urine Nitrite Negative (NEG) Urine Bilirubin Negative (NEG) Urine Urobilinogen Dipstick 0.2 mg/dL (0.2 mg/dL) Urine Leukocyte Esterase Moderate (NEG) Urine RBC 3-5 /HPF (0-2) Urine WBC 11-20 /HPF (0-4) Urine Squamous Epithelial Cells Few /LPF Urine Bacteria Moderate /HPF (0-FEW) White Blood Count 8.5 x10^3/uL (4.0-11.0) Red Blood Count 2.45 x10^6/uL (3.50-5.40) Hemoglobin 7.9 g/dL (12.0-15.5) Hematocrit 23.3 % (36.0-47.0) Mean Corpuscular Volume 95 fL (79-100) Mean Corpuscular Hemoglobin 32 pg (25-35) Mean Corpuscular Hemoglobin Concent 34 g/dL (31-37) Red Cell Distribution Width 18.5 % (11.5-14.5) Platelet Count 394 x10^3/uL (140-400) Neutrophils (%) (Auto) 92 % (31-73) Lymphocytes (%) (Auto) 5 % (24-48) Monocytes (%) (Auto) 1 % (0-9) Eosinophils (%) (Auto) 1 % (0-3) Basophils (%) (Auto) 1 % (0-3) Neutrophils # (Auto) 7.9 x10^3/uL (1.8-7.7) Lymphocytes # (Auto) 0.5 x10^3/uL (1.0-4.8) Monocytes # (Auto) 0.1 x10^3/uL (0.0-1.1) Eosinophils # (Auto) 0.1 x10^3/uL (0.0-0.7) Basophils # (Auto) 0.0 x10^3/uL (0.0-0.2) Sodium Level 137 mmol/L (136-145) Potassium Level 4.4 mmol/L (3.5-5.1) Chloride Level 100 mmol/L (98-107) Carbon Dioxide Level 26 mmol/L (21-32) Anion Gap 11 (6-14) Blood Urea Nitrogen 41 mg/dL (7-20) Creatinine 1.6 mg/dL (0.6-1.0) Estimated GFR (Cockcroft-Gault) 31.6 BUN/Creatinine Ratio 26 (6-20) Glucose Level 114 mg/dL (70-99) Calcium Level 9.6 mg/dL (8.5-10.1) Total Bilirubin 0.4 mg/dL (0.2-1.0) Aspartate Amino Transf (AST/SGOT) 25 U/L (15-37) Alanine Aminotransferase (ALT/SGPT) 21 U/L (14-59) Alkaline Phosphatase 93 U/L (46-116) Total Protein 7.4 g/dL (6.4-8.2) Albumin 2.5 g/dL (3.4-5.0) Albumin/Globulin Ratio 0.5 (1.0-1.7) SARS-CoV-2 Antigen (Rapid) Negative (NEGATIVE) Laboratory Tests Test 04/15/21 12:14 04/15/21 13:09 04/15/21 13:10 Urine Collection Type Unknown Urine Color Yellow Urine Clarity Clear Urine pH 7.0 (<5.0-8.0) Urine Specific [place] 1.015 (1.000-1.030) Urine Protein 30 mg/dL (NEG-TRACE) Urine Glucose (UA) Negative mg/dL (NEG) Urine Ketones (Stick) Negative mg/dL (NEG) Urine Blood Trace (NEG) Urine Nitrite Negative (NEG) Urine Bilirubin Negative (NEG) Urine Urobilinogen Dipstick 0.2 mg/dL (0.2 mg/dL) Urine Leukocyte Esterase Moderate (NEG) Urine RBC 3-5 /HPF (0-2) Urine WBC 11-20 /HPF (0-4) Urine Squamous Epithelial Cells Few /LPF Urine Bacteria Moderate /HPF (0-FEW) White Blood Count 8.5 x10^3/uL (4.0-11.0) Red Blood Count 2.45 x10^6/uL (3.50-5.40) Hemoglobin 7.9 g/dL (12.0-15.5) Hematocrit 23.3 % (36.0-47.0) Mean Corpuscular Volume 95 fL (79-100) Mean Corpuscular Hemoglobin 32 pg (25-35) Mean Corpuscular Hemoglobin Concent 34 g/dL (31-37) Red Cell Distribution Width 18.5 % (11.5-14.5) Platelet Count 394 x10^3/uL (140-400) Neutrophils (%) (Auto) 92 % (31-73) Lymphocytes (%) (Auto) 5 % (24-48) Monocytes (%) (Auto) 1 % (0-9) Eosinophils (%) (Auto) 1 % (0-3) Basophils (%) (Auto) 1 % (0-3) Neutrophils # (Auto) 7.9 x10^3/uL (1.8-7.7) Lymphocytes # (Auto) 0.5 x10^3/uL (1.0-4.8) Monocytes # (Auto) 0.1 x10^3/uL (0.0-1.1) Eosinophils # (Auto) 0.1 x10^3/uL (0.0-0.7) Basophils # (Auto) 0.0 x10^3/uL (0.0-0.2) Sodium Level 137 mmol/L (136-145) Potassium Level 4.4 mmol/L (3.5-5.1) Chloride Level 100 mmol/L (98-107) Carbon Dioxide Level 26 mmol/L (21-32) Anion Gap 11 (6-14) Blood Urea Nitrogen 41 mg/dL (7-20) Creatinine 1.6 mg/dL (0.6-1.0) Estimated GFR (Cockcroft-Gault) 31.6 BUN/Creatinine Ratio 26 (6-20) Glucose Level 114 mg/dL (70-99) Calcium Level 9.6 mg/dL (8.5-10.1) Total Bilirubin 0.4 mg/dL (0.2-1.0) Aspartate Amino Transf (AST/SGOT) 25 U/L (15-37) Alanine Aminotransferase (ALT/SGPT) 21 U/L (14-59) Alkaline Phosphatase 93 U/L (46-116) Total Protein 7.4 g/dL (6.4-8.2) Albumin 2.5 g/dL (3.4-5.0) Albumin/Globulin Ratio 0.5 (1.0-1.7) SARS-CoV-2 Antigen (Rapid) Negative (NEGATIVE) Assessment/Plan Assessment/Plan UTI, enteritis, possible psbo--GI eval pending, consider SBFT, will d/w GI non-contrasted CT due to kidney function, low yield diagnostically JUANITA ORTIZ MD 04/16/21 1217: CONSULT Assessment/Plan Assessment/Plan Above reviewed; agree with above; not suggestive of bowel obstruction, GI eval in progress JAYSON JUAN ASSISTANT SHIFT SUPERVISOR Apr 16, 2021 09:19 JUANITA ORTIZ MD Apr 16, 2021 12:17
--- NOTE | 2021-04-16 09:44 | PDOC2 ---
GI CONSULT Date of Service: DATE: 04/16/21 TIME: 09:44 Reason For Consult: partial SBO HPI: HPI: 75 y/o female admitted through ER. Intermittent cramping pain across lower abdomen, sometimes tracking up right side. Not associated w/ eating or stooling. "I wouldn't say that I don't have nausea." Feeling anxious. H/o constipation controlled w/ Miralax QD - last stooled 2 days ago. Passing flatus. Decreased appetite for awhile - eats 2 meals a day with help from [employer]. Has lost about 10 pounds. No reflux/heartburn, early satiety, bloating, dysphagia, vomiting, diarrhea, hematochezia, or melena. No previous EGD. Reports normal colonoscopy ~1 month ago @ [facility]. S/p cholecystectomy (no stones). No liver, pancreas, or PUD history. Sees rheumatology for erythema nodosum, on methotrexate x 10 years. No NSAIDs. Takes oxycodone for hip pain. H/o anemia on iron and B12 since hip surgery in 01/2021. PMH: PMH: HTN, HLD, erythema nodosum cholecystectomy, left hip surgery, CTR, lumbar surgery, skin biopsy FH: Family History: Cancer (mother - breast), DM Social History: Smoke: No ALCOHOL: none Drugs: None ROS: GEN: Denies fevers, chills, sweats HEENT: Denies blurred vision, sore throat CV: Denies chest pain RESP: Denies shortness of air, cough GI: Per HPI : Denies hematuria, dysuria ENDO: +weight loss NEURO: Denies confusion, dizziness MSK: +hip pain SKIN: Denies jaundice, pruritus Vitals: Vitals: Vital Signs Date Time Temp Pulse Resp B/P (MAP) Pulse Ox O2 Delivery O2 Flow Rate FiO2 04/16/21 08:00 Room Air 04/16/21 07:00 99.2 72 18 116/46 (69) 92 99.2 Labs: Labs: Laboratory Tests Test 04/15/21 12:14 04/15/21 13:09 04/15/21 13:10 Urine Collection Type Unknown Urine Color Yellow Urine Clarity Clear Urine pH 7.0 (<5.0-8.0) Urine Specific [place] 1.015 (1.000-1.030) Urine Protein 30 mg/dL (NEG-TRACE) Urine Glucose (UA) Negative mg/dL (NEG) Urine Ketones (Stick) Negative mg/dL (NEG) Urine Blood Trace (NEG) Urine Nitrite Negative (NEG) Urine Bilirubin Negative (NEG) Urine Urobilinogen Dipstick 0.2 mg/dL (0.2 mg/dL) Urine Leukocyte Esterase Moderate (NEG) Urine RBC 3-5 /HPF (0-2) Urine WBC 11-20 /HPF (0-4) Urine Squamous Epithelial Cells Few /LPF Urine Bacteria Moderate /HPF (0-FEW) White Blood Count 8.5 x10^3/uL (4.0-11.0) Red Blood Count 2.45 x10^6/uL (3.50-5.40) Hemoglobin 7.9 g/dL (12.0-15.5) Hematocrit 23.3 % (36.0-47.0) Mean Corpuscular Volume 95 fL (79-100) Mean Corpuscular Hemoglobin 32 pg (25-35) Mean Corpuscular Hemoglobin Concent 34 g/dL (31-37) Red Cell Distribution Width 18.5 % (11.5-14.5) Platelet Count 394 x10^3/uL (140-400) Neutrophils (%) (Auto) 92 % (31-73) Lymphocytes (%) (Auto) 5 % (24-48) Monocytes (%) (Auto) 1 % (0-9) Eosinophils (%) (Auto) 1 % (0-3) Basophils (%) (Auto) 1 % (0-3) Neutrophils # (Auto) 7.9 x10^3/uL (1.8-7.7) Lymphocytes # (Auto) 0.5 x10^3/uL (1.0-4.8) Monocytes # (Auto) 0.1 x10^3/uL (0.0-1.1) Eosinophils # (Auto) 0.1 x10^3/uL (0.0-0.7) Basophils # (Auto) 0.0 x10^3/uL (0.0-0.2) Sodium Level 137 mmol/L (136-145) Potassium Level 4.4 mmol/L (3.5-5.1) Chloride Level 100 mmol/L (98-107) Carbon Dioxide Level 26 mmol/L (21-32) Anion Gap 11 (6-14) Blood Urea Nitrogen 41 mg/dL (7-20) Creatinine 1.6 mg/dL (0.6-1.0) Estimated GFR (Cockcroft-Gault) 31.6 BUN/Creatinine Ratio 26 (6-20) Glucose Level 114 mg/dL (70-99) Calcium Level 9.6 mg/dL (8.5-10.1) Total Bilirubin 0.4 mg/dL (0.2-1.0) Aspartate Amino Transf (AST/SGOT) 25 U/L (15-37) Alanine Aminotransferase (ALT/SGPT) 21 U/L (14-59) Alkaline Phosphatase 93 U/L (46-116) Total Protein 7.4 g/dL (6.4-8.2) Albumin 2.5 g/dL (3.4-5.0) Albumin/Globulin Ratio 0.5 (1.0-1.7) SARS-CoV-2 RNA (GLYNN) Negative (Negative) SARS-CoV-2 Antigen (Rapid) Negative (NEGATIVE) Allergies: Coded Allergies: Sulfa (Sulfonamide Antibiotics) (Verified Allergy, Intermediate, 04/15/21) ibuprofen (Verified Allergy, Intermediate, 04/15/21) Medications: Current Medications Medications (Trade) Dose Ordered Sig/[place] Route PRN Reason Start Time Stop Time Status Last Admin Dose Admin Ceftriaxone Sodium (Rocephin) 1 gm 1X ONCE IVP 04/15/21 15:30 04/15/21 15:31 DC 04/15/21 16:22 Acetaminophen (Tylenol) 650 mg PRN Q6HRS PRN PO MILD PAIN / TEMP > 100.3'F 04/15/21 21:00 04/16/21 01:28 DC 04/15/21 21:07 Ringer's Solution 1,000 ml @ 75 mls/hr 1X ONCE IV 04/16/21 08:30 04/16/21 21:49 04/16/21 08:40 Imaging: Imaging: CT A/P Findings: Inherently limited evaluation without intravenous contrast. Lower chest: Heart size is normal. There are mitral and aortic annulus calcifications. There is a 5 mm nodule in the right middle lobe. Mild atelectasis in the left lung base. Liver: Normal noncontrast appearance the liver. Gallbladder/Biliary Tree: The gallbladder is surgically absent. Pancreas: Normal. Spleen: Normal. Adrenal Glands: Normal. Kidneys/Ureters/Bladder: Normal. No nephrolithiasis or hydronephrosis. Reproductive Organs: Uterus is anteverted. No adnexal mass. Stomach, small bowel, and colon: Limited evaluation of the bowel due to lack of IV or po contrast. The stomach is decompressed limiting evaluation. There are borderline dilated loops of small bowel in the left lower quadrant without definite transition point. There is some wall thickening of the left lower quadrant. Vasculature: Abdominal aorta is normal in caliber. There is mild to moderate moderate calcified aortoiliac atherosclerosis. Lymph Nodes: No lymphadenopathy. Peritoneum and retroperitoneum: There is omental fat stranding, greatest in the right upper quadrant and left hemiabdomen, nonspecific. No free fluid or free air. Bones: There are surgical changes of posterior decompression and posterior fusion at L2 through the iliac bones. 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 Lumbar scoliosis. Miscellaneous: Small fat-containing umbilical hernia. IMPRESSION: 1. Borderline dilated loops of small bowel in the left hemiabdomen without discrete transition point. Suspect wall thickening in some of the mid small bowel. Findings may reflect enteritis, which could be infectious, inflammatory or ischemic in etiology. Low-grade partial small bowel obstruction is a differential consideration. 2. Omental fat stranding, greatest in the right upper quadrant and also along the left paracolic gutter, nonspecific. In the right upper quadrant there is questionable focal wall thickening in the adjacent transverse colon, which could be due to incomplete distention, colitis, or underlying colonic lesion. 3. Small fat-containing umbilical hernia. 5 mm nodule in the right middle lobe. If the patient is at high risk for lung cancer, and optional twelve-month follow-up CT of the chest could be obtained per Fleischner Society guidelines. PE: GEN: uncomfortable HEENT: Atraumatic, PERRL LUNGS: CTAB HEART: RRR ABD: obese, soft, tenderness worst LLQ - less so suprapubic/RLQ, few quiet BS EXTREMITY: No edema SKIN: No rashes, no jaundice NEURO/PSYCH: A & O 3 A/P: A/P: Lower abdominal cramping Normocytic anemia (on iron and B12 since 01/2021), ?CKD, ?UTI Abnormal CT - borderline dilated SB loops in the hemiabdomen, suspect wall thickening in some of mid small bowel, nonspecific omental fat stranding greatest in RUQ and also along left paracolic gutter, questionable focal wall thickening in the adjacent transverse colon Decreased appetite, ?nausea, weight loss - ongoing since 01/2021 H/o anemia on iron and B12 since 01/2021 CRC screen - reportedly normal colonoscopy ~1 month ago Chronic constipation controlled w/ Miralax QD S/p cholecystectomy H/o erythema nodosum on methotrexate COVID negative -- Add PPI. Will attempt to review records from recent colonoscopy @ [facility]. D/w surgery - ?SBFT - will review w/ Dr. Nicole. BAUDILIO RUSSELL Apr 16, 2021 09:44
--- NOTE | 2021-04-16 10:48 | NUR ---
SS following for discharge planning. SS reviewed pt chart and discussed with pt RN. Pt is from home and is currently on room air. COVID19 negative. Surgery and GI consulted. SS will continue to follow for discharge planning.
[2021-04-16 11:00] VITALS: BP 119/47
[2021-04-16] MEDS: PANTOPRAZOLE IV PUSH 40 MG VIAL. IVP SCH (12:39)
[2021-04-16 15:00] VITALS: BP 107/45
[2021-04-16 19:00] VITALS: BP 121/47
[2021-04-16] MEDS ORDERED: ATORVASTATIN CALCIUM 10 MG TABLET. PO SCH (21:00)
[2021-04-16 23:00] VITALS: BP 117/52
[2021-04-17 03:00] VITALS: BP 104/41
[2021-04-17 07:00] VITALS: BP 115/65
[2021-04-17] MEDS: SENNOSIDES/DOCUSATE 8.6/50MG TABLET. PO SCH (08:38)
[2021-04-17] MEDS: PANTOPRAZOLE IV PUSH 40 MG VIAL. IVP SCH (08:38)
[2021-04-17] MEDS: GEMFIBROZIL 600 MG TABLET. PO SCH (08:39)
[2021-04-17] MEDS: CYANOCOBALAMIN (VITAMIN B-12) 1,000 MCG TABLET. PO SCH (08:40)
[2021-04-17] MEDS: CALCIUM CARB/VIT D3 500/200 TABLET. PO SCH (08:41)
[2021-04-17] MEDS: ALLOPURINOL 100 MG TABLET. PO SCH (08:41)
[2021-04-17] MEDS: GABAPENTIN 300 MG CAPSULE. PO SCH (08:41)
[2021-04-17] MEDS: CHOLECALCIFEROL (VITAMIN D3) 5,000 UNIT CAPSULE PO SCH (08:41)
[2021-04-17] MEDS: FOLIC ACID 1 MG TABLET. PO SCH (08:41)
--- NOTE | 2021-04-17 09:36 | PDOC ---
Date of Service: DATE: 04/17/21 TIME: 09:33 Subjective: Subjective: Feels much better. Not much abdominal pain today, has stooled, tolerating regular diet. Objective: Vital Signs: Vital Signs Date Time Temp Pulse Resp B/P (MAP) Pulse Ox O2 Delivery O2 Flow Rate FiO2 04/17/21 07:00 98.5 62 17 115/65 (82) 95 Room Air 98.5 04/17/21 03:00 94.0 Labs: Laboratory Tests Test 04/16/21 10:26 Iron Level 25 ug/dL Total Iron Binding Capacity 258 ug/dL Iron Saturation 10 % Vitamin B12 Level 377 pg/mL URINE CULTURE Final Final No Growth on 04/17/21 at 0731 Unless otherwise specified, Testing Performed by: [address] [address] For Inquires, the Physician may contact the Microbiology department at [phone] PE: GEN: NAD LUNGS: CTAB HEART: RRR ABD: BS more active today, some LLQ tenderness and right periumbilical - m ild/improved NEURO/PSYCH: A & O 3 A/P: Lower abdominal cramping (resolving), abnormal CT UZMA w/ lowish B12 - on replacement since 01/2021 Chronic constipation - controlled H/o erythema nodosum on methotrexate -- Improved from GI standpoint. PO PPI. Outpt EGD. Justicifation of Admission Dx: Justifications for Admission: Justification of Admission Dx: Yes BAUDILIO RUSSELL Apr 17, 2021 09:36
[2021-04-17] MEDS ORDERED: PANT40TA77 PO (10:03)
[2021-04-17 11:00] VITALS: BP 118/65
--- NOTE | 2021-04-17 11:42 | NUR ---
SW following. Discussed with RN, pt from home, room air, regular diet, COVID-19 negative. Discharge order for home with self care. RN advised no SW needs.
--- NOTE | 2021-04-17 13:14 | PDOC3 ---
[facility]-Discharge Summary Date of Admission: Date of Admission: Apr 16, 2021 Date of Discharge: Date of Discharge: Apr 17, 2021 Admission Diagnosis: Problems: (1) Partial small bowel obstruction (2) UTI (urinary tract infection) Consults: Consults: [facility] Hospital Course: Hospital Course: Patient is a 75-year-old female who arrives via EMS complaining of a 2-week history of intermittent abdominal pain. Patient reports she saw her primary care physician 2 weeks ago and had this pain at that time. Patient states despite that, the pain subsided without intervention. Patient states the pain has however returned and she now has pain in her lower abdomen. Patient further states that it is exquisitely painful whenever she moves. Patient points to her right lower quadrant as well as left lower quadrant. Despite her pain, the patient denies any history of fever, nausea or vomiting. She further denies diarrhea or dysuria. Additionally she denies any development of any masses. She is awake, alert and nontoxic-appearing 04/17 patient has stooled, tolerated diet, feeling better. d/c home today, prn gi followup. Dc >30min Disposition: Disposition/Orders: D/C to Home Activity: Activity: Resume previous activity Diet: Diet: Regular Medications: Home Meds Active Scripts Pantoprazole Sodium (PANTOPRAZOLE SODIUM ) 40 Mg Tablet., 40 MG PO DAILYAC for gerd for 60 Days, #60 TAB.SR Prov:CELSO ZHANG MD 04/17/21 Reported Medications Polyethylene Glycol 3350 (MIRALAX) 119 Gm Powder, 17 GM PO DAILY PRN for CONSTIPATION, #527 GM 0 Refills dissolve in water 04/15/21 Melatonin (MELATONIN) 1 Mg Tablet, 3 MG PO QHS for insomnia, TAB 04/15/21 Oxycodone Hcl (OXYCODONE HCL) 5 Mg Capsule, 5 MG PO TID PRN for PAIN, TAB 0 Refills 04/15/21 Ferrous Gluconate (FERROUS GLUCONATE) 240 Mg Tablet, 324 MG PO BID for anemia, TAB 04/15/21 Cyanocobalamin (Vitamin B-12) (B-12) 500 Mcg Tablet, 500 MCG PO DAILY for supplementation, TAB 04/15/21 Calcium Carbonate/Vitamin D3 (CALCIUM 500 + VIT D 200 TABLET) 1 Each Tablet, 1 EACH PO DAILY for supplementation, TAB 04/15/21 Methotrexate Sodium (METHOTREXATE) 2.5 Mg Tablet, 2.5 MG PO BID PRN for arthritis pain, TAB 04/15/21 Lisinopril (LISINOPRIL) 20 Mg Tablet, 20 MG PO DAILY for FOR HYPERTENSION, #30 TAB 0 Refills 04/15/21 Hydrochlorothiazide (HYDROCHLOROTHIAZIDE TABLET) 50 Mg Tablet, 25 MG PO DAILY for DIURETIC, TAB 0 Refills 04/15/21 Gemfibrozil (GEMFIBROZIL) 600 Mg Tablet, 600 MG PO BID for lower cholesterol, TAB 04/15/21 Gabapentin (GABAPENTIN) 600 Mg Tablet, 300 MG PO BID for NEUROGENIC PAIN, TAB 04/15/21 Folic Acid (Folic Acid) 0.8 Mg Capsule, 1 MG PO DAILY for supplementation, CAP 04/15/21 Cholecalciferol (Vitamin D3) (Vitamin D3 ) 125 Mcg Capsule, 1000 MCG PO DAILY for SUPPLEMENT, CAP 5,000 UNITS = 125 MCG 04/15/21 Atorvastatin Calcium (ATORVASTATIN CALCIUM) 10 Mg Tablet, 10 MG PO HS for FOR CHOLESTEROL, #30 TAB 0 Refills 04/15/21 Allopurinol (ALLOPURINOL) 100 Mg Tablet, 100 MG PO DAILY for gout, TAB 04/15/21 Scheduled Allopurinol (Allopurinol), 100 MG PO DAILY, (Reported) Atorvastatin Calcium (Atorvastatin Calcium), 10 MG PO HS, (Reported) Calcium Carbonate/Vitamin D3 (Calcium 500 + Vit D 200 Tablet), 1 EACH PO DAILY, (Reported) Cholecalciferol (Vitamin D3) (Vitamin D3 ), 1,000 MCG PO DAILY, (Reported) Cyanocobalamin (Vitamin B-12) (B-12), 500 MCG PO DAILY, (Reported) Ferrous Gluconate (Ferrous Gluconate), 324 MG PO BID, (Reported) Folic Acid (Folic Acid), 1 MG PO DAILY, (Reported) Gabapentin (Gabapentin), 300 MG PO BID, (Reported) Gemfibrozil (Gemfibrozil), 600 MG PO BID, (Reported) Hydrochlorothiazide (Hydrochlorothiazide Tablet), 25 MG PO DAILY, (Reported) Lisinopril (Lisinopril), 20 MG PO DAILY, (Reported) Melatonin (Melatonin), 3 MG PO QHS, (Reported) Pantoprazole Sodium (Pantoprazole Sodium ), 40 MG PO DAILYAC Scheduled PRN Methotrexate Sodium (Methotrexate), 2.5 MG PO BID PRN for arthritis pain, (Reported) Oxycodone Hcl (Oxycodone Hcl), 5 MG PO TID PRN for PAIN, (Reported) Polyethylene Glycol 3350 (Miralax), 17 GM PO DAILY PRN for CONSTIPATION, (Reported) Justicifation of Admission Dx: Justifications for Admission: Justification of Admission Dx: Yes CELSO ZHANG MD Apr 17, 2021 13:14
--- NOTE | 2021-04-17 15:16 | NUR ---
Patient discharged home with self care today, via wheelchair, accompanied by aid. Patient is stable, IV removed, belonging returned, and discharge paperwork given to patient. Patient verbalized understanding of followup and discharge instruction.
[2021-04-18] MEDS ORDERED: PANTOPRAZOLE 40 MG TABLET.DR. PO SCH (07:30)
== END 2021-04-17 15:18 | disposition home or self-care (01) | DRG 690 ==
LOC: ER 11:03 → ED HOLD 16:00 → 5 NORTH 17:11 → OBSVTOIN 04-16 14:23
PROVIDERS: ADMIT Student in an Organized Health Care Education/Training Program; ATTEND Student in an Organized Health Care Education/Training Program
DX: N39.0 Urinary tract infection, site not specified (principal); E78.5 Hyperlipidemia, unspecified; I10 Essential (primary) hypertension; K42.9 Umbilical hernia without obstruction or gangrene; L52 Erythema nodosum; Z80.9 Family history of malignant neoplasm, unspecified; Z82.49 Family history of ischemic heart disease and other diseases of the circulatory system; Z83.3 Family history of diabetes mellitus; Z90.49 Acquired absence of other specified parts of digestive tract; Z88.2 Allergy status to sulfonamides; Z88.8 Allergy status to other drugs, medicaments and biological substances; K52.9 Noninfective gastroenteritis and colitis, unspecified; M10.9 Gout, unspecified; K21.9 Gastro-esophageal reflux disease without esophagitis; G47.00 Insomnia, unspecified; D64.9 Anemia, unspecified; Z20.822 Contact with and (suspected) exposure to COVID-19
CPT/HCPCS: 36415; 74176; 80053; 81001; 82607; 83540; 83550; 85025; 87086; 87426; 96374; C9113; G0378; G0379; J0696; J7120; U0003; U0005; 99285-25